=== PATIENT | female | born 1960 | race Caucasian/White ===

== ENCOUNTER 2018-09-15 05:15 | Day surgery (SDC) | payer OTHER ==
[~2018-09-15 05:15] MED LIST: CRESTOR5 MG PO; DICY20TA PO; PREVACID30 M1 PO; WELLBUTRIN SR200 MG PO; XANAX XR2 MG PO; ZESTRIL20 MG PO
[2018-09-15] MEDS ORDERED: KEFLEX500 MG PO (10:21)
[2018-09-15] MEDS ORDERED: ULTRACET PO (10:21)
== END 2018-09-15 12:45 | disposition home or self-care (01) ==
LOC: CIR.AMB 05:15
DX: N32.81 Overactive bladder (principal); N39.41 Urge incontinence
CPT/HCPCS: 64581; C1778

== ENCOUNTER 2022-04-30 05:20 | Day surgery (SDC) | payer OTHER ==
[~2022-04-30 05:20] MED LIST changes: +KEFLEX500 MG PO; +ULTRACET PO
[2022-04-30] MEDS ORDERED: ULTRACET PO (11:00)
== END 2022-04-30 13:00 | disposition home or self-care (01) ==
LOC: CIR.AMB 05:20
PROVIDERS: ATTEND Obstetrics & Gynecology Gynecology
DX: N32.81 Overactive bladder (principal); N39.41 Urge incontinence; I10 Essential (primary) hypertension; E78.00 Pure hypercholesterolemia, unspecified; F41.9 Anxiety disorder, unspecified; E55.9 Vitamin D deficiency, unspecified; E11.9 Type 2 diabetes mellitus without complications; Z20.822 Contact with and (suspected) exposure to COVID-19